=== PATIENT | male | born 1980 | race American Indian/Alaskan Native ===

== ENCOUNTER 2017-12-17 03:42 | Inpatient (IN) | payer BC, OTHER ==
[2017-12-17] MEDS ORDERED: ASPIRIN 81 MG CHEWABLE TABLETS PO ONE (04:22)
--- NOTE | 2017-12-17 04:22 | PDOC ---
History of Present Illness - General History Source: Patient, Old Records Exam Limitations: No Limitations - History of Present Illness Initial Comments: 12/17/17 04:28 The patient is a 37 year old male with a significant past medical history of hypercholesterolemia, who presents to the emergency department today for further evaluation of chest pain since last night. The patient states that his symptoms onset shortly after having relations with his . He notes at that time his pain was mostly located in his left lower chest. Just prior to arrival in the ED the patient was woken from sleep by his pain. He notes that his pain is currently located in his left upper chest. He reports a strong family history of cardiac disease. He denies taking any prescription medications but reports taking omega 3 from his hypercholesterolemia. He does not endorse any associated symptoms <Matt De Oliveira - Last Filed: 12/17/17 04:28> - General History Source: Patient <Jose LAndrea perez - Last Filed: 12/22/17 20:23> - General Chief Complaint: Chest Pain Stated Complaint: CHEST PAIN Time Seen by Provider: 12/17/17 04:18 Past History <Matt De Oliveira - Last Filed: 12/17/17 04:28> - Past Medical History COPD: No GI Disorders: Yes Hypercholesterolemia: Yes - Suicide/Smoking/Psychosocial Hx Smoking History: Never smoked Have you smoked in the past 12 months: No Hx Alcohol Use: Yes Drug/Substance Use Hx: No <Andrea Rivers - Last Filed: 12/22/17 20:23> - Past Medical History Allergies/Adverse Reactions: Allergies Allergy/AdvReac Type Severity Reaction Status Date / Time No Known Allergies Allergy Verified 12/17/17 04:23 Home Medications: Ambulatory Orders [place]-3/Dha/Epa/Fish Oil [[place] 3 500 Softgel] 1 each PO DAILY 12/17/17 Red Yeast Rice Extract 1,000 gm [facility] 12/17/17 Aspirin [ASA -] 81 mg PO DAILY #30 tab.chew 12/19/17 Atorvastatin Calcium [Lipitor] 20 mg PO DAILY #30 tablet 12/19/17 Metoprolol Succinate [Toprol Xl] 25 mg PO DAILY #30 tab.er.24h 12/19/17 Review of Systems - Review of Systems Able to Perform ROS?: Yes Comments:: 12/17/17 04:28 CONSTITUTIONAL: Absent: fever, no chills, no fatigue EYES: Absent: visual changes ENT: Absent: ear pain, no sore throat CARDIOVASCULAR: (+) Chest pain Absent: no palpitations RESPIRATORY: Absent: cough, no SOB GI: Absent: abdominal pain, no nausea, no vomiting, no constipation, no diarrhea GENITOURINARY: Absent: dysuria, no frequency, no hematuria MUSCULOSKELETAL: Absent: back pain, no arthralgia, no myalgia SKIN: Absent: rash <SergemargothMatt - Last Filed: 12/17/17 04:28> *Physical Exam - Vital Signs Last Vital Signs Temp Pulse Resp BP Pulse Ox 98.1 F 80 17 125/79 99 12/17/17 03:57 12/17/17 03:57 12/17/17 03:57 12/17/17 03:57 12/17/17 03:57 - Physical Exam Comments: 12/17/17 04:29 GENERAL: Well-appearing, well-nourished. No apparent distress. HEENT: Normocephalic, atraumatic. PERRL, EOM intact. CARDIOVASCULAR: Normal S1, S2. Regular rate and rhythm. PULMONARY: Clear to auscultation bilaterally. ABDOMEN: Soft, non-distended, non-tender. EXTREMITIES: Normal ROM in all four extremities. No gross deformities. SKIN: Warm, dry. No rash NEUROLOGICAL: No focal neurological deficits. <AlvinoMatt - Last Filed: 12/17/17 04:28> - Vital Signs Last Vital Signs Temp Pulse Resp BP Pulse Ox 98.1 F 80 17 125/79 99 12/17/17 03:57 12/17/17 03:57 12/17/17 03:57 12/17/17 03:57 12/17/17 03:57 <Andrea Rivers - Last Filed: 12/22/17 20:23> ED Treatment Course - LABORATORY CBC & Chemistry Diagram: 12/17/17 04:00 12/17/17 04:00 <Andrea Rivers - Last Filed: 12/22/17 20:23> Medical Decision Making - Medical Decision Making 12/22/17 20:22 Dr. Rivers: The scribe's documentation has been prepared under my direction and personally reviewed by me in its entirery. I confirm that the note above accurately reflects all work, treatment, procedures, and medical decision making performed by me. <Andrea Rivers - Last Filed: 12/22/17 20:23> *DC/Admit/Observation/Transfer - Attestations Scribe Attestion: 12/17/17 04:29 Documentation prepared by Matt De Oliveira, acting as medical director occupational health for Andrea Rivers DO. <Matt De Olvieira - Last Filed: 12/17/17 04:28> <Andrea Rivers - Last Filed: 12/22/17 20:23> Diagnosis at time of Disposition: Chest pain Qualifiers: Chest pain type: unspecified Qualified Code(s): R07.9 - Chest pain, unspecified - Discharge Dispostion Disposition: HOME Condition at time of disposition: Stable
[2017-12-17 04:28] VITALS: BMI 26.2
[2017-12-17] MEDS ORDERED: ASPIRIN 325 MG ENTERIC COATED TABLET (FP) ONE (04:34)
[2017-12-17 04:39] LABS: BASO % 0.6 % (0-2.0); EOS % 2.4 % (0-4.5); HEMATOCRIT 42.8 % (35.4-49); HEMOGLOBIN 15.2 GM/dL (11.7-16.9); LYMPH % 37.9 % (8-40); MCH 30.9 pg (25.7-33.7); MCHC 35.4 g/dl (32.0-35.9); MEAN CELL VOLUME 87.2 fl (80-96); MEAN PLT VOLUME 7.8 fl (7.5-11.1); MONO % 8.2 % (3.8-10.2); NEUT % 50.9 % (42.8-82.8); PLATELET COUNT 274 K/MM3 (134-434); RBC 4.91 M/mm3 (4.00-5.60); RDW 12.6 % (11.9-15.9); WHITE BLOOD COUNT 6.3 K/mm3 (4.0-10.0)
[2017-12-17 04:58] LABS: INR 0.97 (0.82-1.09)
[2017-12-17 05:31] LABS: ALBUMIN 4.2 g/dl (3.4-5.0); ANION GAP 9 (8-16); BILIRUBIN,TOTAL 0.5 mg/dL (0.2-1.0); BLOOD UREA NITROGEN 12 mg/dL (7-18); CALCIUM 9.9 mg/dL (8.5-10.1); CHLORIDE 104 mmol/L (98-107); CO2 28 mmol/L (21-32); CREATININE 0.9 mg/dL (0.7-1.3); GLUCOSE,RANDOM 93 mg/dL (74-106); LIPASE 126 U/L (73-393); SGPT/ALT 35 U/L (12-78); SODIUM 141 mmol/L (136-145); TOT PROT 8.1 g/dl (6.4-8.2)
[2017-12-17 05:34] LABS: ALK PHOS 78 U/L (45-117); MAGNESIUM 2.2 mg/dL (1.8-2.4); N-TERMINAL BNP 10.88 pg/ml (5-125); POTASSIUM 3.9 mmol/L (3.5-5.1)
[2017-12-17 05:35] LABS: SGOT/AST 24 U/L (15-37)
[2017-12-17] MEDS ORDERED: METOPROLOL TARTRATE 5 MG/5 ML VIAL IVPUSH ONE (06:18)
[2017-12-17] MEDS ORDERED: METOPROLOL TARTRATE 5 MG/5 ML VIAL ONE (06:27)
--- NOTE | 2017-12-17 07:27 | PDOC ---
*Physical Exam - Vital Signs Last Vital Signs Temp Pulse Resp BP Pulse Ox 98.5 F 69 18 116/68 99 12/17/17 06:41 12/17/17 06:41 12/17/17 06:41 12/17/17 06:41 12/17/17 03:57 - Physical Exam Comments: 12/17/17 08:08 GENERAL: Awake, alert, and fully oriented, in no acute distress HEAD: No signs of trauma, normocephalic, atraumatic EYES: PERRLA, EOMI, sclera anicteric, conjunctiva clear ENT: Auricles normal inspection, hearing grossly normal, nares patent, oropharynx clear without exudates. Moist mucosa NECK: Normal ROM, supple, no lymphadenopathy, JVD, or masses EXTREMITIES: Normal inspection, Normal range of motion, no edema. No clubbing or cyanosis. NEUROLOGICAL: Cranial nerves II through XII grossly intact. Normal speech, no focal sensorimotor deficits Heart Score/ECG Review - History History: Highly suspicious - Electrocardiogram EKG: Normal - Age Age: </= 45 - Risk Factors Risk Factors Heart Score: Yes Hx Hypercholesterolemia, Yes Positive family hx of cardiac disease Based on the list above the patient has:: 1-2 risk factors - Troponin Troponin: 1-3x normal limit - Score Heart Score - Total: 4 ED Treatment Course - LABORATORY CBC & Chemistry Diagram: 12/17/17 04:00 12/17/17 04:00 - ADDITIONAL ORDERS Additional order review: Laboratory Results 12/17/17 12/17/17 04:00 04:00 PT with INR 11.00 INR 0.97 Sodium 141 Potassium 3.9 Chloride 104 Carbon Dioxide 28 Anion Gap 9 BUN 12 Creatinine 0.9 Creat Clearance w eGFR > 60 Random Glucose 93 Calcium 9.9 Magnesium 2.2 Total Bilirubin 0.5 D AST 24 D ALT 35 Alkaline Phosphatase 78 D Creatine Kinase 149 Troponin I 0.08 H B-Natriuretic Peptide 10.88 Total Protein 8.1 Albumin 4.2 Lipase 126 12/17/17 04:00 RBC 4.91 MCV 87.2 MCHC 35.4 RDW 12.6 MPV 7.8 Neutrophils % 50.9 Lymphocytes % 37.9 Monocytes % 8.2 Eosinophils % 2.4 Basophils % 0.6 - Medications Given in the ED: ED Medications Discontinued Medications Generic Name Dose Route Start Last Admin Trade Name Freq PRN Reason Stop Dose Admin Aspirin 324 mg 12/17/17 04:22 12/17/17 04:36 Asa - PO 12/17/17 04:23 324 mg ONCE ONE Administration Metoprolol Tartrate 5 mg 12/17/17 06:18 12/17/17 06:34 Lopressor Injection - IVPUSH 12/17/17 06:19 5 mg ONCE ONE Administration Medical Decision Making - Medical Decision Making 12/17/17 08:[address] Rivers. Patient is 37M with history significant for family history of heart disease, HTN here today with chest pain. Vital signs stable and normal. Trop positive to .08. Patient complaining of more chest pain, but says that his pain is more lateral now and worse with arm movement. Will give tylenol. Repeat EKG shows normal sinus rhythm, normal rate, normal axis. No significant st elevation/depression. No significant t wave abnormalities. Admitted to tele obs via Dr Ross *DC/Admit/Observation/Transfer Diagnosis at time of Disposition: Chest pain - Discharge Dispostion Condition at time of disposition: Stable Admit: Yes - Referrals Referrals: Melita Mckinnon MD [Primary Care Provider] - - Patient Instructions - Post Discharge Activity
[2017-12-17] MEDS ORDERED: ACETAMINOPHEN 500 MG TABLET (FP) PO ONE (07:45)
[2017-12-17] MEDS ORDERED: ACETAMINOPHEN 325 MG TABLET (FP) ONE (08:01)
[2017-12-17] MEDS ORDERED: metoPROLOL SUCCINATE 25 MG TAB.SR.24H (FP) PO ONE (10:34)
[2017-12-17] MEDS ORDERED: NITROGLYCERIN 25MG/D5W 250ML 25 MG/250 ML ML IVPB SCH (10:45)
--- NOTE | 2017-12-17 12:11 | CON.CARD ---
Consult Consult Specialty:: Cardiology Referred by:: Dr. 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 Patient complains of radiation to his left shoulder. He has had left sided chest pain a little lower in location couple years ago and was evaluated at [facility] where he works. He had cardiac testings including nuclear stress test which was reported unremarkable. He denies shortness of breath or palpitations. He denies paroxysmal nocturnal dyspnea or orthopnea. He denies fever or chills. He denies cough or expectoration. He denies nausea, vomiting, diarrhea or abdominal pain. He denies headache or lightheadedness. He reports strong family history of CAD and MT at young age. He denies syncope. - History Source History Provided By: Patient, Family Member, Medical Record Limitations to Obtaining History: No Limitations - Past Medical History Cardio/Vascular: Yes: Hyperlipdemia - Past Surgical History Additional Surgical History: ACL surgery - Alcohol/Substance Use Hx Alcohol Use: Yes History of Substance Use: reports: None - Smoking History Smoking history: Never smoked Have you smoked in the past 12 months: No Home Medications - Allergies Allergies/Adverse Reactions: Allergies Allergy/AdvReac Type Severity Reaction Status Date / Time No Known Allergies Allergy Verified 12/17/17 04:23 - Home Medications Home Medications: Ambulatory Orders [place]-3/Dha/Epa/Fish Oil [[place] 3 500 Softgel] 1 each PO DAILY 12/17/17 Red Yeast Rice Extract 1,000 gm [facility] 12/17/17 Family Disease History - Family Disease History Family Disease History: Other: Father (HTN, hypercholesterolemia), Mother (HTN, hypercholesterolemia) Other Family History: History of CAD, MT (decesased due to this in their 50's) Review of Systems - Review of Systems Constitutional: denies: Chills, Fever Cardiovascular: reports: Chest Pain. denies: Palpitations, Shortness of Breath Respiratory: denies: Cough, Hemoptysis, Orthopnea, PND, SOB, SOB on Exertion Gastrointestinal: denies: Abdominal Pain, Constipation, Diarrhea, Melena, Nausea , Rectal Bleeding, Vomiting Genitourinary: denies: Dysuria, Hematuria Musculoskeletal: denies: Joint Pain Neurological: denies: Dizziness, Headache, Seizure, Syncope Vital Signs: Vital Signs Temperature 98.4 F 12/17/17 10:06 Pulse Rate 74 12/17/17 10:13 Respiratory Rate 18 12/17/17 10:06 Blood Pressure 117/74 12/17/17 10:06 O2 Sat by Pulse Oximetry (%) 100 12/17/17 10:13 Constitutional: Yes: Well Nourished Eyes: Yes: PERRL HENT: Yes: Atraumatic Neck: Yes: Supple Respiratory: Yes: CTA Bilaterally Gastrointestinal: Yes: Normal Bowel Sounds, Soft. No: Tenderness Cardiovascular: Yes: Regular Rate and Rhythm JVD: No Carotid Bruit: No PMI: Non-Displaced Heart Sounds: Yes: S1, S2 Murmur: No: Systolic Murmur, Diastolic Murmur Edema: No - Other Data Labs, Other Data: CBC, BMP 12/17/17 04:00 12/17/17 04:00 INR, PTT INR 0.97 (0.82-1.09) 12/17/17 04:00 Troponin, BNP 12/17/17 12/17/17 04:00 10:37 Troponin I 0.08 H 0.07 H B-Natriuretic Peptide 10.88 Laboratory Results - last 24 hr 12/17/17 12/17/17 12/17/17 04:00 04:00 04:00 WBC 6.3 RBC 4.91 Hgb 15.2 Hct 42.8 MCV 87.2 MCH 30.9 MCHC 35.4 RDW 12.6 Plt Count 274 MPV 7.8 Neutrophils % 50.9 Lymphocytes % 37.9 Monocytes % 8.2 Eosinophils % 2.4 Basophils % 0.6 PT with INR 11.00 INR 0.97 Sodium 141 Potassium 3.9 Chloride 104 Carbon Dioxide 28 Anion Gap 9 BUN 12 Creatinine 0.9 Creat Clearance w eGFR > 60 Random Glucose 93 Hemoglobin A1c % Calcium 9.9 Magnesium 2.2 Total Bilirubin 0.5 D AST 24 D ALT 35 Alkaline Phosphatase 78 D Creatine Kinase 149 Troponin I 0.08 H B-Natriuretic Peptide 10.88 Total Protein 8.1 Albumin 4.2 Triglycerides Cholesterol Total LDL Cholesterol HDL Cholesterol Lipase 126 12/17/17 12/17/17 12/17/17 10:37 10:37 10:37 WBC RBC Hgb Hct MCV MCH MCHC RDW Plt Count MPV Neutrophils % Lymphocytes % Monocytes % Eosinophils % Basophils % PT with INR INR Sodium Potassium Chloride Carbon Dioxide Anion Gap BUN Creatinine Creat Clearance w eGFR Random Glucose Hemoglobin A1c % 5.2 D Calcium Magnesium Total Bilirubin AST ALT Alkaline Phosphatase Creatine Kinase 129 Troponin I 0.07 H 0.07 H B-Natriuretic Peptide Total Protein Albumin Triglycerides 180 H Cholesterol 203 H Total LDL Cholesterol 134 H HDL Cholesterol 39 L Lipase Normal sinus rhythm with no ST-T abnormality Echo: Pending Imaging - Results Chest X-ray: Report Reviewed (Unremarkable) EKG: Report Reviewed Problem List - Problems (1) Hypercholesterolemia Code(s): E78.00 - PURE HYPERCHOLESTEROLEMIA, UNSPECIFIED (2) WAGNER on CPAP Code(s): G47.33 - OBSTRUCTIVE SLEEP APNEA (ADULT) (PEDIATRIC); Z99.89 - DEPENDENCE ON OTHER ENABLING MACHINES AND DEVICES (3) Family history of MT (myocardial infarction) Code(s): Z82.49 - FAMILY HX OF ISCHEM HEART DIS AND OTH DIS OF THE CIRC SYS (4) Chest pain Code(s): R07.9 - CHEST PAIN, UNSPECIFIED Qualifiers: Chest pain type: unspecified Qualified Code(s): R07.9 - Chest pain, unspecified Assessment/Plan 1. Chest pain syndrome, rule out ACS, slightly elevated troponin suggests demand ischemia 2. Hypercholesterolemia 3. Strong family history of CAD and MT 4. Obstructive sleep apnea - on CPAP intermittently PLAN: 1. Trend cardiac enzymes. 2. Transthoracic echocardiography to assess LV/RV and valvular function 3. Consider nuclear myocardial perfusion imaging study vs. cardiac catheterization 4. Add ASA 81 mg once a day 5. Consider statin therapy in view of above lipid panel if patient is agreeable 6. Patient was given small dose of beta leander - will decide whether to continue with it 7. Encouraged CPAP for treatment of WAGNER Further plans are to follow Jagjit Oneil MD
--- NOTE | 2017-12-17 14:37 | EKG ---
Test Reason : Blood Pressure : / mmHG Vent. Rate : 061 BPM Atrial Rate : 061 BPM P-R Int : 160 ms QRS Dur : 092 ms QT Int : 388 ms P-R-T Axes : 036 043 035 degrees QTc Int : 390 ms NORMAL SINUS RHYTHM NORMAL ECG WHEN COMPARED WITH ECG OF 17-DEC-2017 03:54, NO SIGNIFICANT CHANGE WAS FOUND Confirmed by JAKE MELENDEZ MD ([id number]) on 12/17/2017 2:37:38 PM Referred By: Confirmed By:JAKE MELENDEZ MD
--- NOTE | 2017-12-17 14:37 | EKG ---
Test Reason : Blood Pressure : / mmHG Vent. Rate : 076 BPM Atrial Rate : 076 BPM P-R Int : 148 ms QRS Dur : 096 ms QT Int : 362 ms P-R-T Axes : 040 046 031 degrees QTc Int : 407 ms NORMAL SINUS RHYTHM NORMAL ECG NO PREVIOUS ECGS AVAILABLE Confirmed by JAKE MELENDEZ MD ([id number]) on 12/17/2017 2:37:31 PM Referred By: Confirmed By:JAKE MELENDEZ MD
--- NOTE | 2017-12-17 15:43 | HP ---
DATE OF ADMISSION: 12/17/2017 Patient is a 37-year-old male with a past medical history of hypercholesterolemia with a strong family history of heart disease, presented to the emergency room with complaints of left upper chest discomfort last night. Patient complains of radiation to his left shoulder. Patient had a similar episode in the past and was evaluated at [facility] where he works, and he had a stress test. It was negative. Patient denies any shortness of breath, palpitations. Denies any dyspnea. Never had any fever, chills, or cough. Did not complain of any fever, chills. No nausea. No vomiting. No diarrhea. No abdominal pain. No headache. No lightheadedness. Patient reports a strong family history of coronary artery disease and PR at a young age. Two of his uncles of heart attack at late 50s. Patient denies any syncope. PAST MEDICAL HISTORY: History of hyperlipidemia. PAST SURGICAL HISTORY: surgery. SOCIAL HISTORY: No history of smoking. Social drinking. No history of any drug administration. Patient lives with the family. ALLERGIES: No known drug allergy. MEDICATIONS: Patient is on [place]-3 and red yeast rice extract. FAMILY HISTORY: Father has hypertension. Mother had hypertension. Uncle had a history of coronary artery disease. REVIEW OF SYSTEMS: Constitutional: Patient denies any chills, fever. Cardiovascular: Mild chest pain on the left side. No palpitations. No shortness of breath. Respiratory: Nothing significant. Gastrointestinal: Nothing significant. Genitourinary: No urinary symptoms. Musculoskeletal: Denies any joint pain. Neurological: No dizziness. No headache. No syncope. PHYSICAL EXAMINATION: Vital Signs: On examination of the patient in the emergency room, the temperature 98.1, pulse rate 80, respirations 17, blood pressure 125/79, saturation 99%. Head and Neck: Normal. Neck supple. PERRLA. No JVD. No carotid bruit. Cardiovascular: First and second sounds normal. Chest: Clear to auscultation. Abdomen: Soft. No tenderness. No distention. Bowel sounds present. Extremities: No edema. Neurological: Alert, oriented x3. No apparent motor or sensory deficit. Reflexes normal. Regarding EKG, it showed normal sinus rhythm. No ST or T-wave changes. Chest x-ray: No acute changes. LABORATORIES: CBC showed WBC 6.3, hemoglobin 15.2, hematocrit 42.8, platelets 274. CMP normal. Magnesium 2.2. AST 24, ALT 35, alkaline phosphatase 78. CK 149. Troponin 0.08. BNP 10.88. DIAGNOSES: 1. Chest pain. Slightly elevated troponin. 2. Hypercholesterolemia. 3. History of obstructive sleep apnea on continuous positive airway pressure. 4. Family history of myocardial infarction. PLAN: We will monitor the cardiac enzymes. Patient was given aspirin, beta-leander, statin. Cardiology consult called. Further management according to the cardiology evaluation. Patient is stable on the floor. SALOME BAXTER M.D. [id number]
[2017-12-17] MEDS ORDERED: ACETAMINOPHEN 325 MG TABLET (FP) PO PRN (17:45)
[2017-12-17] MEDS: ATORVASTATIN CA 20 MG TABLET (FP) PO SCH (21:13)
--- NOTE | 2017-12-18 10:04 | PN ---
Progress Note, Physician Chief Complaint: Pt lying in bed no chest pain no new complaints today RPT troponin 0.07x3 times ECho NL Stress test today - Current Medication List Current Medications: Active Medications Acetaminophen (Tylenol -) 650 mg PO Q6H PRN PRN Reason: PAIN LEVEL 4 - 6 Last Admin: 12/17/17 17:51 Dose: 650 mg Aspirin (Ecotrin -) 81 mg PO DAILY [facility] Atorvastatin Calcium (Lipitor -) 20 mg PO HS [facility] Last Admin: 12/17/17 21:13 Dose: 20 mg - Objective Vital Signs: Vital Signs Temperature 98.1 F 12/18/17 06:00 Pulse Rate 73 12/18/17 06:00 Respiratory Rate 18 12/18/17 06:00 Blood Pressure 118/72 12/18/17 06:00 O2 Sat by Pulse Oximetry (%) 96 12/17/17 21:00 Constitutional: Yes: No Distress Eyes: Yes: Conjunctiva Clear HENT: Yes: Atraumatic, Normocephalic Neck: Yes: Supple Cardiovascular: Yes: Regular Rate and Rhythm Respiratory: Yes: Regular, CTA Bilaterally Gastrointestinal: Yes: Normal Bowel Sounds Genitourinary: Yes: WNL Musculoskeletal: Yes: WNL Extremities: Yes: WNL Edema: No Peripheral Pulses WNL: Yes Neurological: Yes: WNL, Alert ...Motor Strength: WNL Psychiatric: Yes: WNL Labs: CBC, BMP 12/17/17 04:00 12/17/17 04:00 INR, PTT INR 0.97 (0.82-1.09) 12/17/17 04:00 Assessment/Plan Chest pain syndrome,slightly abnormal Troponin . As per cardiology demand ischemia Hypercholestrolemia Strong family h/o cardiac disease WAGNER Plan Stress test today ASA Lipitor 20 mg po daily Will f/u cardiology rec
--- NOTE | 2017-12-18 11:15 | PN ---
Progress Note, Physician History of Present Illness: Off floor undergoing stress test. - Current Medication List Current Medications: Active Medications Acetaminophen (Tylenol -) 650 mg PO Q6H PRN PRN Reason: PAIN LEVEL 4 - 6 Last Admin: 12/17/17 17:51 Dose: 650 mg Aspirin (Ecotrin -) 81 mg PO DAILY [facility] Atorvastatin Calcium (Lipitor -) 20 mg PO HS [facility] Last Admin: 12/17/17 21:13 Dose: 20 mg - Objective Vital Signs: Vital Signs Temperature 98.1 F 12/18/17 06:00 Pulse Rate 73 12/18/17 06:00 Respiratory Rate 18 12/18/17 06:00 Blood Pressure 118/72 12/18/17 06:00 O2 Sat by Pulse Oximetry (%) 96 12/17/17 21:00 Labs: CBC, BMP 12/17/17 04:00 12/17/17 04:00 INR, PTT INR 0.97 (0.82-1.09) 12/17/17 04:00 Assessment/Plan 12/17/2017 Echo: Normal biventricular size and fxn without sig valve abnl 1. Chest pain syndrome, rule out ACS, slightly elevated troponin suggests demand ischemia 2. Hypercholesterolemia 3. Strong family history of CAD and [place] 4. Obstructive sleep apnea - on CPAP intermittently PLAN: 1. Cardiac enzymes have plateaued 2. F/u nuclear myocardial perfusion imaging study results 3. Continue ASA 81 mg once a day, Lipitor 20 qd, start Toprol XL 25 qd 4. Encouraged CPAP for treatment of WAGNER
[2017-12-18] MEDS: ASPIRIN COATED 81 MG TABLET.EC PO SCH (13:20)
[2017-12-18] MEDS: metoPROLOL SUCCINATE 25 MG TAB.SR.24H (FP) PO SCH (16:08)
[2017-12-18] MEDS: ATORVASTATIN CA 20 MG TABLET (FP) PO SCH (21:02)
[2017-12-19 06:10] VITALS: TEMP 97.7
[2017-12-19] MEDS: metoPROLOL SUCCINATE 25 MG TAB.SR.24H (FP) PO SCH (10:07)
[2017-12-19] MEDS: ASPIRIN COATED 81 MG TABLET.EC PO SCH (10:07)
[2017-12-19 12:20] VITALS: BP 110/77; PULSE 76
--- NOTE | 2017-12-19 12:34 | PN ---
Progress Note, Physician Chief Complaint: Pt lying in bed no chest pain no new complaints today stress reprt shows exercise part negative and nuclear part shows mild apical inferolateral ischemia ,LVEF 53% with Nl wall motion ECho NL cleared by cardiology for d/c and f/u with cardiology and for outpatient cardiac cath - Current Medication List Current Medications: Active Medications Acetaminophen (Tylenol -) 650 mg PO Q6H PRN PRN Reason: PAIN LEVEL 4 - 6 Last Admin: 12/17/17 17:51 Dose: 650 mg Aspirin (Ecotrin -) 81 mg PO DAILY [facility] Last Admin: 12/19/17 10:07 Dose: 81 mg Atorvastatin Calcium (Lipitor -) 20 mg PO HS [facility] Last Admin: 12/18/17 21:02 Dose: 20 mg Metoprolol Succinate (Toprol Xl -) 25 mg PO DAILY [facility] Last Admin: 12/19/17 10:07 Dose: 25 mg - Objective Vital Signs: Vital Signs Temperature 97.7 F 12/19/17 06:00 Pulse Rate 76 12/19/17 10:00 Respiratory Rate 18 12/19/17 10:00 Blood Pressure 110/77 12/19/17 10:00 O2 Sat by Pulse Oximetry (%) 98 12/19/17 10:00 Constitutional: Yes: No Distress Eyes: Yes: Conjunctiva Clear HENT: Yes: Atraumatic Neck: Yes: Supple, Trachea Midline Cardiovascular: Yes: Regular Rate and Rhythm Respiratory: Yes: Regular, CTA Bilaterally Gastrointestinal: Yes: Normal Bowel Sounds Musculoskeletal: Yes: WNL Extremities: Yes: WNL Edema: No Peripheral Pulses WNL: Yes Integumentary: Yes: WNL Neurological: Yes: WNL, Alert ...Motor Strength: WNL Psychiatric: Yes: WNL, Alert Labs: CBC, BMP 12/17/17 04:00 12/17/17 04:00 INR, PTT INR 0.97 (0.82-1.09) 12/17/17 04:00 Assessment/Plan Chest pain syndrome,slightly abnormal Troponin . As per cardiology demand ischemia stress test report shows, exercise part negtive and nuclear part shows apical inferolateral ischemia Hypercholestrolemia Strong family h/o cardiac disease WAGNER Plan FOr outpatient cardiac catheterisation ASA Lipitor 20 mg po daily toprol XL 25mg daily f/u with cardiology d/c home today
--- NOTE | 2017-12-19 12:49 | PN ---
Progress Note (short form) - Note Progress Note: Chief Complaint: Events noted, notes reviewed, denies any further chest pain, denies any dyspnea History of Present Illness: Seen and examined on telemetry. Events noted, notes reviewed, denies any further chest pain, denies any dyspnea Echocardiography revealed normal LV size and function with no significant valvular pathology MPI study revealed apical and infero-lateral ischemic defect with normal LV function, exercised into stage IV of Mitch protocol without any chest pain or ischemic EKG changes Results of the above noted testing was reviewed in detail with the patient and his who was in attendance and advised to continue current medical therapy including continuation of B-Dorothy therapy pending further evaluation including LHC& coronary angiography (to be performed at [facility]/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 was contacted yesterday Dr.Kujtim Aguilar) Medications: Current Medications Acetaminophen (Tylenol -) 650 mg PO Q6H PRN PRN Reason: PAIN LEVEL 4 - 6 Last Admin: 12/17/17 17:51 Dose: 650 mg Aspirin (Ecotrin -) 81 mg PO DAILY [facility] Last Admin: 12/19/17 10:07 Dose: 81 mg Atorvastatin Calcium (Lipitor -) 20 mg PO HS [facility] Last Admin: 12/18/17 21:02 Dose: 20 mg Metoprolol Succinate (Toprol Xl -) 25 mg PO DAILY [facility] Last Admin: 12/19/17 10:07 Dose: 25 mg Review of Systems Cardiovascular: As noted above Respiratory: denies: denies: Cough or Sputum Production Gastrointestinal: denies: Nausea, Vomiting, Diarrhea, Constipation or Abdominal Discomfort Musculoskeletal: No Symptoms Reported Endocrine: No Symptoms Reported Vital Signs: Last Vital Signs Temp Pulse Resp BP Pulse Ox 97.7 F 76 18 110/77 98 12/19/17 06:00 12/19/17 10:00 12/19/17 10:00 12/19/17 10:00 12/19/17 10:00 Intake & Output 12/16/17 12/17/17 12/18/17 12/19/17 23:59 23:59 23:59 23:59 Intake Total 260 720 680 Balance 260 720 680 Weight 188 lb Constitutional: Well Nourished Eyes: SOFY EOMI Neck: Supple Negative JVD No Bruit Respiratory: Yes: CTA Bilaterally Cardiovascular: S1 S2 Regular Rate and Rhythm Gastrointestinal: Soft Benign Normal Bowel Sounds Ext: No Edema Labs: CBC, BMP 12/17/17 04:00 12/17/17 04:00 Assessment/Plan ASSESSMENT: 1. Chest pain syndrome/abnormal MPI study evidence of demand ischemia, CAD angina pectoris 2. Hypercholesterolemia 3. History of obstructive sleep apnea PLAN: 1. Continue Toprol XL 2. Continue Lipitor 3. Continue ASA 4. As outlined above plan to proceed with outpatient LHC& coronary angiography, plan to D/C home today Jin Simmons MD
--- NOTE | 2017-12-19 12:51 | DS ---
Physical Examination Vital Signs: Vital Signs Temperature 97.7 F 12/19/17 06:00 Pulse Rate 76 12/19/17 10:00 Respiratory Rate 18 12/19/17 10:00 Blood Pressure 110/77 12/19/17 10:00 O2 Sat by Pulse Oximetry (%) 98 12/19/17 10:00 Labs: CBC, BMP 12/17/17 04:00 12/17/17 04:00 Discharge Summary Reason For Visit: chest pain syndrome Current Active Problems Chest pain (Acute) Family history of KS (myocardial infarction) (Acute) Hypercholesterolemia (Acute) WAGNER on CPAP (Acute) Hospital Course: Pt with h/o hypercholestrolemia and strong f/h of cardiac history admitted with lt sided chest pain In the ER vitals were stable.CBC,CMP NL,EKG NL, cardiac enzymes shows troponin moderately elevated and values showed 0.08/0.07/ 0.07 Echo reprt was nl Pt was given betablocker,asa and lipitor pt was assymptomatic since admission Stress test done showed exercise part negative and nuclear part shows apical mild inferolateral Ischemiia Since strong family h/o cardiac disease andf present stress report rec to do outpatient cardiac catheterisation pt was stable in the telemetry floor D/c home in astable condition on Toprol XL 25mg po daily,asa and lipitor 20 mg po daily and rec to f/u with cardiology as OP Condition: Stable - Instructions - Home Medications Comprehensive Discharge Medication List: Ambulatory Orders [place]-3/Dha/Epa/Fish Oil [[place] 3 500 Softgel] 1 each PO DAILY 12/17/17 Red Yeast Rice Extract 1,000 gm ASDIR 12/17/17 Aspirin [ASA -] 81 mg PO DAILY #30 tab.chew 12/19/17 Atorvastatin Calcium [Lipitor] 20 mg PO DAILY #30 tablet 12/19/17 Metoprolol Succinate [Toprol Xl] 25 mg PO DAILY #30 tab.er.24h 12/19/17
== END 2017-12-19 13:24 | disposition home or self-care (01) | DRG 313 ==
LOC: JER 03:42 → JERBED 08:12 → OBSVTOIN 10:05 → J4S 15:48
PROVIDERS: ADMIT Internal Medicine; ATTEND Internal Medicine
DX: R07.89 Other chest pain (principal); I24.8 Other forms of acute ischemic heart disease; G47.33 Obstructive sleep apnea (adult) (pediatric); E78.5 Hyperlipidemia, unspecified; Z82.49 Family history of ischemic heart disease and other diseases of the circulatory system
CPT/HCPCS: 36415; 71046-TC-FY; 78452-TC; 80053; 80061; 82550; 83036; 83690; 83721; 83735; 83880; 84484; 85025; 85610; 93005; 93010; 93017; 93306-TC; 99285-25; A9502; G0378